=== PATIENT | female | born 1965 | race Caucasian/White ===

== ENCOUNTER 2017-05-29 19:35 | Emergency (ER) | payer OTHER ==
[~2017-05-29] VITALS: Ht 165.1 cm; Wt 67.1 kg
[~2017-05-29 19:35] MED LIST: IMODIUM2 MG ORAL; NKM; ZOFRAN ODT4 MG ORAL
[2017-05-29] MEDS ORDERED: METOPROLOL TART25 MG ORAL (20:00)
[2017-05-29] MEDS ORDERED: LOSARTAN POTASS25 MG ORAL (20:01)
[2017-05-29] MEDS ORDERED: ROBAXIN-750750 MG PO (20:30)
[2017-05-29] MEDS ORDERED: IBUPROFEN600 MG ORAL (20:30)
[2017-05-29 21:09] VITALS: BP 159/76
--- NOTE | 2017-05-30 17:24 | Diagnostic Imaging Report ---
Indication: Reason For Exam: PAIN Technique: One view of the chest Comparison: 09/03/2006 Findings: Lungs and pleural spaces are clear. Heart size is normal. No significant change Impression: No acute process
--- NOTE | 2017-06-19 14:18 | Emergency Room Report ---
History of Present Illness General Chief Complaint: Multiple Trauma/Fall Source: Patient Present Illness HPI 51-year-old female no significant past medical history presenting with left- sided rib pain after fall. + mechanical fall, fell L side. also c/o L leg and L elbow pain, still able to move it without difficulty. There is no head trauma or LOC. Now complaining of pain in the left side worse with twisting motion and movement. No shortness of breath. No other complaints Allergies: Coded Allergies: ERYTHROMYCIN BASE (Verified Allergy, Intermediate, 07/26/13) COPIED FROM UNCODED SECTION Patient History Past Medical History: see triage record Past Surgical History: none Pertinent Family History: none Reviewed Nursing Documentation: PMH: Agreed, PSxH: Agreed Nursing Documentation-PMH Hx Hypertension: Yes Review of Systems All Other Systems: negative except mentioned in HPI Physical Exam Vital Signs Date Time Temp Pulse Resp B/P (MAP) Pulse Ox O2 Delivery O2 Flow Rate FiO2 05/29/17 19:57 98.1 89 16 159/76 98 Room Air Sp02 EP Interpretation: reviewed, normal General Appearance: normal inspection, well appearing, no apparent distress, alert, GCS 15, non-toxic Head: normocephalic, atraumatic Eyes: bilateral eye normal inspection, bilateral eye PERRL, bilateral eye EOMI ENT: normal ENT inspection, normal pharynx, normal voice, moist mucus membranes Neck: normal inspection, full range of motion, supple Respiratory: normal inspection, lungs clear, normal breath sounds, no respiratory distress, no retraction, no wheezing, speaking full sentences, chest symmetrical Cardiovascular #1: normal inspection, regular rate, rhythm, no edema, normal capillary refill Cardiovascular #2: 2+ radial (R), 2+ radial (L) Gastrointestinal: normal inspection, non tender, soft, non-distended, no guarding Musculoskeletal: back normal, normal range of motion, other - +L sided rib tenderness, no ecchymosis, no gross bony abnormalities. L elbow and L tib fib mild tenderness, FROM, no edema or ecchymosis Neurologic: normal inspection, alert, oriented x3, responsive, motor strength/ tone normal, sensory intact, normal gait, speech normal Psychiatric: normal inspection, judgement/insight normal, memory normal Skin: normal inspection, normal color, no rash, warm/dry, well hydrated, normal turgor Medical Decision Making Diagnostic Impression: Primary Impression: Rib pain on left side Additional Impressions: Contusion of left lower extremity Contusion of left upper extremity Fall ER Course 51-year-old female with left-sided pain after fall DDX: Contusion versus fracture Plan: Pain control, x-ray ER course: Patient has remained stable during ED stay. Pain is improved with medications. X-ray is unremarkable. No shortness of breath Disposition: Patient is to be discharged to home. Patient is instructed to follow up with their primary care doctor within 5 days. Strict return precautions discussed with patient such as fever, chills, worsening/severe pain, chest pain, SOB, nausea, vomiting, which may indicate severe illness. Patient verbalizes understanding and agrees with plan. Please note that this Emergency Department Report was dictated using [employer] sales representative technology software, occasionally this can lead to erroneous entry secondary to interpretation by the dictation equipment Chest X-ray CXR: Ordered: Yes 1 view Indication: Chest pain EP interpretation: Yes Interpretation: No consolidation, no effusion, no PTX, no acute cardiopulmonary disease Impression: No acute disease Electronically signed by Mukesh Perez MD Last Vital Signs Date Time Temp Pulse Resp B/P (MAP) Pulse Ox O2 Delivery O2 Flow Rate FiO2 05/29/17 21:09 98.1 16 159/76 98 Room Air 05/29/17 21:09 89 Disposition: HOME, SELF-CARE Condition: Stable Scripts Methocarbamol* (ROBAXIN-750*) 750 Mg Tablet 750 MG PO QID, #28 TAB 0 Refills Prov: Mukesh Perez M.D. 05/29/17 Ibuprofen* (MOTRIN*) 600 Mg Tablet 600 MG ORAL Q8H Y for For Pain, #30 TAB 0 Refills Prov: Mukesh Perez M.D. 05/29/17 Referrals: NON PHYSICIAN (PCP) Patient Instructions: Contusion, [id number] Mukesh Perez M.D. Jun 19, 2017 14:18
== END 2017-05-29 21:09 | disposition home or self-care (01) ==
LOC: EMR 20:50
DX: S40.022A Contusion of left upper arm, initial encounter (principal); S50.12XA Contusion of left forearm, initial encounter; R07.89 Other chest pain; W19.XXXA Unspecified fall, initial encounter; Y92.9 Unspecified place or not applicable
CPT/HCPCS: 71010; 99283